=== PATIENT | male | born 1980 | race Caucasian/White ===

== ENCOUNTER 2022-08-03 16:39 | Emergency (ER) | payer OTHER, MEDICAID, SELFPAY ==
[2022-08-03 16:44] VITALS: BP 120/71; PULSE 77; RESP 16; TEMP 36.1; O2SAT 94; BMI 24.3
[2022-08-03] MEDS: TET,DIPH,PERTUSS(ACELL),VAC/PF 0.5 ML SYRINGE IM (17:11)
[2022-08-03] MEDS: LIDOCAINE 2% INJ SDV 5 ML INJ (19:29)
--- NOTE | 2022-08-03 19:29 | ED.ANIMALBIT ---
HPI - Animal Bite <Stan Arizmendi PA-C - Last Filed: 08/03/22 19:53> General Chief Complaint: Animal Bite Stated Complaint: Was involved in dog fight, [place] Time Seen by Provider: 08/03/22 17:07 Mode of arrival: Family Vehicle History of Present Illness HPI narrative: Patient is 42 year male who presents to with complaint laceration to his upper right lip was bit by a dog today. States he was trying to break a dog fight and the dog bit him. He said he is pretty sure that the dog does not have reduced has been vaccinated. Denies any other concerns. The Related Data Previous Rx's Medication Instructions Recorded amoxicillin 875 mg-potassium 1 tab PO BID #14 tabs 08/03/22 clavulanate 125 mg tablet Allergies Allergy/AdvReac Type Severity Reaction Status Date / Time No Known Drug Allergies Allergy Verified 08/03/22 16:47 Review of Systems <Stan Arizmendi PA-C - Last Filed: 08/03/22 19:53> Review of Systems Narrative: R.O.S.: General: No fever, chills or fatigue. Cardiovascular: No chest pain or palpitations Respiratory: No S.O.B. HEENT: No congestion, ear pain, rhinorrhea, sore throat or tinnitus Gastrointestinal: No nausea or vomiting : No urinary concerns Skin: Laceration to right upper lip after dog bite. Musculoskeletal: No pain in muscles or joints, no limitation of range of motion, no paresthesia or numbness. ?? Neurological: Awake, alert and in not apparent distress. No Headaches, changes in vision or other related neurological concerns. Patient History <Stan Arizmendi PA-C - Last Filed: 08/03/22 19:53> tobacco type: vaping alcohol intake frequency: a few times a week Substance Use Type: marijuana Exam <ADALBERTO Nagel Last Filed: 08/03/22 19:53> Narrative Exam Narrative: Physical Exam: ? General: normal appearance, well developed, well nourished, alert, and awake. Not in acute distress. ? Head: Normocephalic, no lesions. Chest: Lungs CTAB, no rales, rhonchi or wheezes. ?? Heart: RRR, no murmurs, rubs or gallops. Eyes: PERRLA, EOM's full, conjunctivae clear. ? Neuro: Physiological, no localizing findings, CN3-12 intact. ?? Extremities: Warm, well perfused, FROM, no deformities, no edema. ?? Skin: Patient has an approximate 1 cm vertical laceration the upper right lip area. The laceration passes through the vermilion border area. The area has minor bleeding minor swelling and mild erythema. ? PSYCHIATRIC: The mood is good, no blunted affect. Speech is clear. Thought process is linear, thought content is appropriate. The voice is without significant inflection. Gastrointestinal: Soft; NT; ND; Pos BS with Neg. rebound tenderness. No scars or major deformities noted on Visual Inspection. Initial Vital Signs Initial Vital Signs: Vital Signs Temperature 97 F L 08/03/22 16:44 Pulse Rate 77 08/03/22 16:44 Respiratory Rate 16 08/03/22 16:44 Blood Pressure 120/71 08/03/22 16:44 Pulse Oximetry 94 08/03/22 16:44 Oxygen Delivery Method 08/03/22 16:44 <Doug Xavier DO - Last Filed: 08/03/22 22:35> Initial Vital Signs Initial Vital Signs: Vital Signs Temperature 97 F L 08/03/22 16:44 Pulse Rate 77 08/03/22 16:44 Respiratory Rate 16 08/03/22 16:44 Blood Pressure 120/71 08/03/22 16:44 Pulse Oximetry 94 08/03/22 16:44 Oxygen Delivery Method 08/03/22 16:44 Course <Stan Arizmendi PA-C - Last Filed: 08/03/22 19:53> Orders Ordered: Discontinued Medications Diphtheria/Tetanus/Acell Pertussis (Tet,Diph,Pertuss(Acell),Vac/Pf 0.5 Ml Syringe) 0.5 ml IM .ONCE ONE Stop: 08/03/22 17:02 Last Admin: 08/03/22 17:11 Dose: 0.5 ml Documented By: CTS Lidocaine HCl (Lidocaine 2% Inj Sdv) 5 ml INJ INTRA-OP ONE Stop: 08/03/22 19:05 Last Admin: 08/03/22 19:29 Dose: 5 ml Documented By: AT Neomycin/Polymyxin/Bacitracin (Neomycin/Polymyxin/Bacitra Ud Oint) 1 each TOP NOW ONE Stop: 08/03/22 19:49 Last Admin: 08/03/22 20:07 Dose: 1 each Documented By: AT Vital Signs Vital signs: Vital Signs - 8 hr 08/03/22 16:44 Temperature 97 F L Pulse Rate 77 Respiratory Rate 16 Blood Pressure 120/71 Pulse Oximetry 94 Oxygen Delivery Method Room Air <Doug Xavier DO - Last Filed: 08/03/22 22:35> Orders Ordered: Discontinued Medications Diphtheria/Tetanus/Acell Pertussis (Tet,Diph,Pertuss(Acell),Vac/Pf 0.5 Ml Syringe) 0.5 ml IM .ONCE ONE Stop: 08/03/22 17:02 Last Admin: 08/03/22 17:11 Dose: 0.5 ml Documented By: CTS Lidocaine HCl (Lidocaine 2% Inj Sdv) 5 ml INJ INTRA-OP ONE Stop: 08/03/22 19:05 Last Admin: 08/03/22 19:29 Dose: 5 ml Documented By: AT Neomycin/Polymyxin/Bacitracin (Neomycin/Polymyxin/Bacitra Ud Oint) 1 each TOP NOW ONE Stop: 08/03/22 19:49 Last Admin: 08/03/22 20:07 Dose: 1 each Documented By: AT Vital Signs Vital signs: Vital Signs - 8 hr 08/03/22 16:44 Temperature 97 F L Pulse Rate 77 Respiratory Rate 16 Blood Pressure 120/71 Pulse Oximetry 94 Oxygen Delivery Method Room Air MDM - Animal Bite <Stan Arizmendi PA-C - Last Filed: 08/03/22 19:53> [facility] Narrative Medical decision making narrative: Patient is a 42-year-old male who presents to the emergency room today with complaint of a laceration to his right upper lip after dog bite. Patient has a proximally 1 cm vertical laceration that passes through the vermilion border. 2 loosely placed lacerations were used to close the area. Antibiotics were ordered and patient instructed on care and advised to return to the emergency room for suture removal in 7 days. Patient also advised to return to the emergency room if any emergent concerns arise. Discharge Plan Departure Patient Disposition: Home Clinical Impression: Dog bite Instructions: DI for Animal Bites Activity Restrictions/Additional Instructions: *You have been diagnosed with dog bite to lip. I have inserted 2 sutures to close the laceration and I have ordered ordered antibiotics for 2 take for the next 7 days. I suggest you try keep the area clean prevent any foreign body from entering the mastoid area. I also suggest to return to the emergency room in 7 days for suture removal. Also please return to the emergency room for any emergent concerns arise. [ ] *What to do: *Please continue to take your regular medications as directed. [ ] New medication prescriptions sent to your pharmacy: [ ] [x] New medication written as a paper prescription [ ] No new medications given *Please follow up with your primary care provider in 2-3 days, call for an appointment. Let them know you were seen in the Emergency Department and that we ask that you be seen in follow up. We will electronically transmit a record of today's note if your PCP is in our system *If you do not have a primary care provider please contact the [facility] Resource line at [phone]. They will ask some questions about your medical history and help get you set up with a doctor in the community. *Return to Emergency Department if you should have any new, worsening or concerning symptoms, such as [fever greater than 101 F, shaking chills, worsening pain, persistent vomiting or other bothersome symptoms] Prescriptions: New amoxicillin-pot clavulanate 875-125 mg tablet 1 tab PO BID Qty: 14 0RF Visit Report Forms: Patient Portal/API <Doug Xavier, DO - Last Filed: 08/03/22 22:35> Cosign ED Attending Cosaliciaature Attestation: Dr Xavier Co-Sign Statement: I was available for consultation during this patient's emergency department visit. This chart is signed by myself for administrative purposes only. I did not have direct contact with this patient during this visit. They were seen independently by the APC.
[2022-08-03] MEDS: NEOMYCIN/POLYMYXIN/BACITRA UD OINT 1 EACH TOP (20:07)
== END 2022-08-03 20:05 | disposition home or self-care (01) ==
PROVIDERS: Emergency Provider Physician Assistant
DX: S01.551A Open bite of lip, initial encounter (principal); W54.0XXA Bitten by dog, initial encounter; Z23 Encounter for immunization
CPT/HCPCS: 12011; 90471; 99283; 90715

== ENCOUNTER 2024-03-04 15:05 | Emergency (ER) | payer SELFPAY ==
[2024-03-04 15:35] VITALS: BP 121/80; PULSE 68; RESP 16; TEMP 36.8; O2SAT 98; BMI 25.8
[2024-03-04 17:23] VITALS: BP 134/89; PULSE 69; RESP 16; O2SAT 97
--- NOTE | 2024-03-04 18:14 | ED.SKABFB ---
HPI - Skin/Abscess/Foreign Bdy General Chief complaint: Skin/Abscess/Foreign Body Stated complaint: infection in buttocks Time Seen by Provider: 03/04/24 17:46 Source: patient Mode of arrival: Ambulatory Limitations: no limitations History of Present Illness HPI narrative: 43-year-old male presents for pruritic rash in between his buttocks. States that he went to a walk-in clinic in [facility] and was discharged on an antibiotic. He states that he took the antibiotic for 10 days but he is no better. He is concerned that it may lead to a bloodstream infection. Patient currently living out of his car Related Data Previous Rx's Medication Instructions Recorded amoxicillin 875 mg-potassium 1 tab PO BID #14 tabs 08/03/22 clavulanate 125 mg tablet clotrimazole 1 % topical cream 1 applic topical TID #45 grams 03/04/24 Allergies Allergy/AdvReac Type Severity Reaction Status Date / Time No Known Drug Allergies Allergy Verified 08/03/22 16:47 Review of Systems Review of Systems Narrative: See HPI Patient History Social History Smoking Status: Current every day smoker Smoking Status: Current every day smoker tobacco type: cigarettes and vaping alcohol intake frequency: a few times a week Substance Use Type: marijuana Exam Initial Vital Signs Initial Vital Signs: Vital Signs Temperature 98.3 F 03/04/24 15:35 Pulse Rate 68 03/04/24 15:35 Respiratory Rate 16 03/04/24 15:35 Blood Pressure 121/80 03/04/24 15:35 Pulse Oximetry 98 03/04/24 15:35 Oxygen Delivery Method Room Air 03/04/24 15:35 Const: Awake, alert, no acute distress, nontoxic appearing Skin: Measurer Machine present, ringworm like rash in between buttocks. No fluctuance, no induration, no excessive warmth. No rectal or thelma-rectal lesions Neuro: AO x3, CN II-XII grossly intact, moves all extremities Course Orders Ordered: Discontinued Medications Clotrimazole (Clotrimazole 1% Crm 30 Gm) 1 applic TOP NOW ONE Stop: 03/04/24 19:04 Last Admin: 03/04/24 19:15 Dose: Not Given Documented By: IRIS Triamcinolone Acetonide (Triamcinolone 0.5% Cream) 1 applic TOP NOW ONE Stop: 03/04/24 19:02 Last Admin: 03/04/24 19:07 Dose: Not Given Documented By: IRIS Vital Signs Vital signs: Vital Signs - 8 hr 03/04/24 19:13 Pulse Rate 62 Respiratory Rate 16 Blood Pressure 125/74 Pulse Oximetry 95 Oxygen Delivery Method Room Air MDM - Skin/Abscess/Foreign Bdy Differential Diagnosis Differential diagnosis: Likely abscess of skin or subcutaneous tissue, viral exanthem and dermatophytosis MDM Narrative Medical decision making narrative: Skin lesion between buttocks. No evidence of cellulitis on exam. It appears to have central clearing similar to ringworm with associated pruritus. Patient advised to apply antifungal cream to areas of pruritis. Dermatology follow up advised if no improvement with clotrimazole. Discharge Plan Departure Patient Disposition: Home Clinical Impression: Pruritic rash Instructions: DI for Ringworm Activity Restrictions/Additional Instructions: Your rash appears to be fungal, not bacterial. Apply antifungal cream to areas of discomfort 2-3 times daily. If you do not notice improvement in a week please follow up with Dermatology. Keep the area clean and dry and wear clean cotton underwear. Prescriptions: New clotrimazole 1 % cream 1 applic topical TID Qty: 45 0RF No Action amoxicillin-pot clavulanate 875-125 mg tablet 1 tab PO BID Qty: 14 0RF Referrals: Miscellaneous,Doctor, [Primary Care Provider] - Stand Alone Forms: Patient Portal/API
[2024-03-04 19:13] VITALS: BP 125/74; PULSE 62; RESP 16; O2SAT 95
== END 2024-03-04 19:14 | disposition home or self-care (01) ==
PROVIDERS: Emergency Provider Emergency Medicine
DX: L28.2 Other prurigo (principal)
CPT/HCPCS: 99281; A9270